=== PATIENT | female | born 1955 | race Hispanic/Latino ===

== ENCOUNTER 2020-02-22 23:34 | Inpatient (IN) | payer MEDICAID ==
[~2020-02-22] VITALS: Ht 160 cm; Wt 46.5 kg
[2020-02-23] VITALS (25 sets, daily range): BP systolic 97–135; BP diastolic 52–73
[2020-02-23] MEDS ORDERED: NITROGLYCERIN 0.4 MG SL TAB SL PRN (00:30)
[2020-02-23] MEDS ORDERED: ONDANSETRON HCL 4 MG/2 ML VIAL IV PRN (00:30)
[2020-02-23] MEDS ORDERED: ACETAMINOPHEN 325 MG TAB PO PRN ×2 (00:30)
[2020-02-23] MEDS ORDERED: VITA1CAP PO (00:58)
[2020-02-23] MEDS ORDERED: ALPR0.25 PO (00:58)
[2020-02-23] MEDS ORDERED: LISI-617 PO (00:58)
[2020-02-23 01:36] LABS: MEAN CORPUSCULAR HEMOGLOBIN 29.8 pg (27.0-33.0); MEAN CORPUSCULAR HGB CONC 34.5 g/dL (32.0-36.0); MEAN CORPUSCULAR VOLUME 86.2 fL (79-99); PLATELET COUNT (AUTO) 362 K/uL (130-400); RED BLOOD CELL COUNT(AUTO) 3.83 MIL/uL (4.00-5.50); RED CELL DISTRIBUTION WIDTH 12.9 % (11.0-15.5); WHITE BLOOD COUNT (AUTO) 14.1 K/uL (4.8-10.8)
[2020-02-23] MEDS: SODIUM CHLORIDE 0.9% 1000ML 1,000 ML IV SCH ×3 (01:45→20:30)
[2020-02-23 01:49] LABS: INR 0.99 (0.85-1.15); PARTIAL THROMBOPLASTIN TIME 25.7 SEC (26.3-35.5); PROTHROMBIN TIME 10.7 SEC (9.6-11.6)
[2020-02-23 01:56] LABS: LYMPHOCYTES % (MANUAL) 8 % (22-44); MAN.DIFF COMMENT-IMPRESSION MANUAL DIFFERENTIAL; MONOCYTES % (MANUAL) 7 % (2-9); SEGMENTED NEUTROPHILS % 85 % (40-70)
[2020-02-23 01:57] LABS: PLATELET MORPHOLOGY COMMENT ADEQUATE
[2020-02-23] MEDS: DIPHENHYDRAMINE HCL 25 MG CAPSULE PO PRN ×2 (02:06→20:24)
[2020-02-23] MEDS: MORPHINE SULFATE 2 MG/ML 1ML SYG IVP PRN (02:06)
[2020-02-23] MEDS ORDERED: ALPRAZOLAM 0.25 MG TABLET PO PRN (02:45)
[2020-02-23 05:34] LABS: ALBUMIN 3.6 g/dL (3.5-5.0); CREATININE 0.5 mg/dL (0.5-1.5); POTASSIUM 4.8 mmol/L (3.5-5.1); TOTAL PROTEIN, SERUM 7.3 g/dL (6.0-8.3)
[2020-02-23 07:10] LABS: APPEARANCE,URINE CLEAR (CLEAR); BILIRUBIN,URINE NEGATIVE (NEGATIVE); COLOR,URINE YELLOW (YELLOW); GLUCOSE, URINE (UA) NEGATIVE (NEGATIVE); KETONES,URINE 5 mg/dL (NEGATIVE); LEUKOCYTE ESTERASE ,URINE NEGATIVE (NEGATIVE); NITRATE,URINE NEGATIVE (NEGATIVE); OCCULT BLOOD,URINE TRACE-INTACT (NEGATIVE); PROTEIN,URINE NEGATIVE (NEGATIVE); UROBILINOGEN,URINE 0.2 mg/dL (0.2-1.0)
[2020-02-23 07:17] LABS: BACTERIA,URINE Rare /HPF (None Seen); RBC,URINE 0-1 /HPF (0-1); SQUAMOUS EPITHELIAL CELL,UR 0-2 /HPF (0-2); WBC,URINE 0-1 /HPF (0-1)
[2020-02-23] MEDS: FAMOTIDINE 20MG TAB 20 MG TAB PO SCH ×2 (09:00→20:22)
[2020-02-23] MEDS: ENOXAPARIN SODIUM 30 MG/0.3 ML SQ SCH (09:00)
[2020-02-23] MEDS ORDERED: MIDAZOLAM HCL 1 MG/ML 2ML VIAL ONE (12:53)
[2020-02-23] MEDS ORDERED: SUCCINYLCHOLINE CHLORIDE 20 MG/ML 10 ML VIAL ONE (12:53)
[2020-02-23] MEDS ORDERED: ONDANSETRON HCL 4 MG/2 ML VIAL ONE (12:53)
[2020-02-23] MEDS ORDERED: LIDOCAINE PF 2% 5ML ABBOJECT ONE (12:53)
[2020-02-23] MEDS ORDERED: GLYCOPYRROLATE 1 MG/5 ML SYRINGE ONE (12:53)
[2020-02-23] MEDS ORDERED: DEXAMETHASONE SOD PHOSPHATE 10MG/ML 1ML VIAL ONE (12:53)
[2020-02-23] MEDS ORDERED: ROCURONIUM 10MG/1ML SYR 10 MG/ML ML ONE (12:54)
[2020-02-23] MEDS ORDERED: NEOSTIGMINE 5MG/5ML SYR IV ONE (12:54)
[2020-02-23] MEDS ORDERED: PROPOFOL 10 MG/ML 20ML VIAL IV ONE (12:54)
[2020-02-23] MEDS ORDERED: FENTANYL CITRATE PF 50 MCG/1 ML 2ML VIAL ONE (12:54)
[2020-02-23] MEDS ORDERED: ROPIVACAINE 0.5% 5MG/ML 30ML IJ ONE ×2 (13:43→13:46)
[2020-02-23] MEDS ORDERED: CEFAZOLIN SODIUM 1 GM VIAL ONE (13:57)
[2020-02-23] MEDS ORDERED: EPHEDRINE SULFATE 50 MG/ML AMPULE ONE (15:46)
--- NOTE | 2020-02-23 19:58 | NUR ---
cm note met with patient and also spoke to sister eliud via phone, pt states resides athome with mother 92yo alexys de jesus. pt is usually independnet with adls/ambulation. no dme. no provider services. per sister pt is high functioning, and is dx with Mental delay and does have a casemanager assigned with [facility]. but pt usually does not go to day habe services. provided briefcase sewer info [facility] [phone]. or [phone] for any needs. but sister halina is open to either HH services or snf if md recommeds. will continue to followup. Addendum: 02/23/20 at 2001 by MALI MOSS CM Amended: Links added.
[2020-02-24] MEDS: MORPHINE SULFATE 2 MG/ML 1ML SYG IVP PRN ×4 (01:39→20:34)
[2020-02-24 04:00] VITALS: BP 109/62
[2020-02-24 05:28] LABS: BASOPHILS % (AUTO) 0.2 % (0.0-5.0); HEMATOCRIT 30.4 % (36-48); LYMPHOCYTES % (AUTO) 11.5 % (21.0-51.0); MEAN CORPUSCULAR HEMOGLOBIN 29.4 pg (27.0-33.0); MEAN CORPUSCULAR HGB CONC 32.9 g/dL (32.0-36.0); MEAN CORPUSCULAR VOLUME 89.4 fL (79-99); MONOCYTES % (AUTO) 9.5 % (3.0-13.0); NEUTROPHILS % (AUTO) 78.3 % (40.0-77.0); PLATELET COUNT (AUTO) 329 K/uL (130-400); RED CELL DISTRIBUTION WIDTH 13.5 % (11.0-15.5); WHITE BLOOD COUNT (AUTO) 12.4 K/uL (4.8-10.8)
[2020-02-24 05:49] LABS: ALBUMIN 2.9 g/dL (3.5-5.0); BILIRUBIN,TOTAL 0.8 mg/dL (0.2-1.0); CREATININE 0.6 mg/dL (0.5-1.5); POTASSIUM 3.2 mmol/L (3.5-5.1); TOTAL PROTEIN, SERUM 5.8 g/dL (6.0-8.3)
[2020-02-24] MEDS: SODIUM CHLORIDE 0.9% 1000ML 1,000 ML IV SCH ×2 (06:30→16:30)
[2020-02-24 08:00] VITALS: BP 103/54
[2020-02-24] MEDS: FAMOTIDINE 20MG TAB 20 MG TAB PO SCH ×2 (09:02→20:33)
[2020-02-24] MEDS: ENOXAPARIN SODIUM 30 MG/0.3 ML SQ SCH (09:03)
[2020-02-24] MEDS ORDERED: POTASSIUM CHLORIDE 20 MEQ ERTAB PO PRN (11:15)
[2020-02-24] MEDS ORDERED: POTASSIUM CHLORIDE 20MEQ/100ML 100 ML IV PRN ×2 (11:15)
[2020-02-24 11:22] VITALS: BP 116/63
[2020-02-24] MEDS: POTASSIUM CHLORIDE 10% ELIXIR 20 MEQ/15 ML UDCUP PO PRN ×3 (11:42→20:34)
[2020-02-24 16:35] VITALS: BP 116/61
[2020-02-24] MEDS ORDERED: KETOROLAC TROMETHAMINE 15MG/ML IV PRN (17:30)
[2020-02-24] MEDS: ACETAMINOPHEN-CODEINE 300/30MG TAB PO SCH (17:56)
[2020-02-24 20:12] VITALS: BP 122/57
[2020-02-24] MEDS: DIPHENHYDRAMINE HCL 25 MG CAPSULE PO PRN (20:33)
[2020-02-25 00:01] VITALS: BP 108/64
[2020-02-25] MEDS: ACETAMINOPHEN-CODEINE 300/30MG TAB PO SCH ×3 (00:48→12:54)
[2020-02-25] MEDS: SODIUM CHLORIDE 0.9% 1000ML 1,000 ML IV SCH ×3 (01:39→22:49)
[2020-02-25 04:20] VITALS: BP 129/72
[2020-02-25 05:15] LABS: BASOPHILS % (AUTO) 0.4 % (0.0-5.0); EOSINOPHILS % (AUTO) 0.4 % (0.0-8.0); HEMATOCRIT 32.2 % (36-48); LYMPHOCYTES % (AUTO) 16.1 % (21.0-51.0); MEAN CORPUSCULAR HEMOGLOBIN 29.1 pg (27.0-33.0); MEAN CORPUSCULAR HGB CONC 32.9 g/dL (32.0-36.0); MEAN CORPUSCULAR VOLUME 88.5 fL (79-99); MONOCYTES % (AUTO) 8.5 % (3.0-13.0); NEUTROPHILS % (AUTO) 74.1 % (40.0-77.0); PLATELET COUNT (AUTO) 349 K/uL (130-400); RED BLOOD CELL COUNT(AUTO) 3.64 MIL/uL (4.00-5.50); RED CELL DISTRIBUTION WIDTH 13.4 % (11.0-15.5); WHITE BLOOD COUNT (AUTO) 11.1 K/uL (4.8-10.8)
[2020-02-25 05:39] LABS: ALBUMIN 2.8 g/dL (3.5-5.0); BILIRUBIN,TOTAL 0.7 mg/dL (0.2-1.0); CREATININE 0.5 mg/dL (0.5-1.5); POTASSIUM 3.5 mmol/L (3.5-5.1); TOTAL PROTEIN, SERUM 6.2 g/dL (6.0-8.3)
[2020-02-25 08:41] VITALS: BP 131/76
[2020-02-25] MEDS: ENOXAPARIN SODIUM 30 MG/0.3 ML SQ SCH (09:49)
[2020-02-25] MEDS: FAMOTIDINE 20MG TAB 20 MG TAB PO SCH ×2 (09:49→19:44)
[2020-02-25 13:44] VITALS: BP 134/75
--- NOTE | 2020-02-25 16:04 | NUR ---
DC PLAN VISITED WITH PATIENT AND SISTER. AFTER SEVERAL CONVERSATIONS. PATIENT WILL HAVE TO GO HOME. SPOKE TO DR. NAVARRO NURSE. SAID WILL HAVE APPOINTMENT WITH DR. NAVARRO TO ORDER HOME HEALTH, NURSING SKILLS. SPOKE TO [facility] FROM [facility] THEY WILL WORK FROM THEIR END TO SET UP PROVIDER SERVICES. SPOKE TO INSURANCE. SAID THAT PATIENT DOES NOT HAVE SNF BENEFITS ONLY PHYSICAL THERAPY AVAILABLE FOR PATIENT WOULD BE OUTPATIENT EITHER AT A PLACE OR AT HOME. EXPLAINED THAT TO PATIENT AND SISTER. DECIDED WITH HOME HEALTH. FAXED INFORMATION TO DR. NAVARRO OFFICE IN ORDER TO HELP WITH SET UP. [facility] AND [facility] [place] FROM [facility] AND [facility] IN CASE THEY CALL. SIGNED BY PATIENT. WITNESSED BY SISTER IN ROOM. Addendum: 02/25/20 at 1620 by RADHIKA MARTINEZ RN CM Amended: Links added.
[2020-02-25 16:24] VITALS: BP 122/74
[2020-02-25] MEDS ORDERED: ACETAMINOPHEN-CODEINE 300/30MG TAB PO PRN (18:15)
[2020-02-25 19:30] VITALS: BP 135/74
[2020-02-25] MEDS: LACTULOSE 20 GM/30 ML UDCUP PO SCH (19:44)
[2020-02-25] MEDS: MORPHINE SULFATE 2 MG/ML 1ML SYG IVP PRN (19:45)
[2020-02-25] MEDS: HYDROMORPHONE 1 MG/1 ML AMP IVP PRN ×2 (21:04→22:49)
[2020-02-26] VITALS: BP 120/70
[2020-02-26] MEDS: HYDROMORPHONE 1 MG/1 ML AMP IVP PRN ×2 (00:48→02:44)
[2020-02-26] MEDS ORDERED: MORPHINE SULFATE 2 MG/ML 1ML SYG IVP PRN (03:45)
[2020-02-26 04:00] VITALS: BP 128/76
[2020-02-26 05:15] LABS: BASOPHILS % (AUTO) 0.6 % (0.0-5.0); EOSINOPHILS % (AUTO) 0.7 % (0.0-8.0); HEMATOCRIT 31.1 % (36-48); LYMPHOCYTES % (AUTO) 15.3 % (21.0-51.0); MEAN CORPUSCULAR HEMOGLOBIN 29.2 pg (27.0-33.0); MEAN CORPUSCULAR HGB CONC 33.1 g/dL (32.0-36.0); MEAN CORPUSCULAR VOLUME 88.1 fL (79-99); MONOCYTES % (AUTO) 7.3 % (3.0-13.0); NEUTROPHILS % (AUTO) 75.6 % (40.0-77.0); PLATELET COUNT (AUTO) 382 K/uL (130-400); RED BLOOD CELL COUNT(AUTO) 3.53 MIL/uL (4.00-5.50); RED CELL DISTRIBUTION WIDTH 13.3 % (11.0-15.5); WHITE BLOOD COUNT (AUTO) 9.9 K/uL (4.8-10.8)
[2020-02-26 05:41] LABS: ALBUMIN 2.5 g/dL (3.5-5.0); BILIRUBIN,TOTAL 0.5 mg/dL (0.2-1.0); CREATININE 0.5 mg/dL (0.5-1.5); POTASSIUM 3.7 mmol/L (3.5-5.1); TOTAL PROTEIN, SERUM 6.1 g/dL (6.0-8.3)
[2020-02-26] MEDS: SODIUM CHLORIDE 0.9% 1000ML 1,000 ML IV SCH (08:30)
[2020-02-26] MEDS: LACTULOSE 20 GM/30 ML UDCUP PO SCH (09:00)
[2020-02-26] MEDS: ENOXAPARIN SODIUM 30 MG/0.3 ML SQ SCH (09:21)
[2020-02-26] MEDS: FAMOTIDINE 20MG TAB 20 MG TAB PO SCH (09:24)
[2020-02-26 10:13] VITALS: BP 117/65
[2020-02-26 12:22] VITALS: BP 134/73
--- NOTE | 2020-02-26 13:59 | NUR ---
i have called pt's pharmacy in regards to ordering elequis and cost of it; i was told that it is 100% covered, so i have given them an [email or web address] telephone order for elequia NS TYLENOL #3; I have called pts sister and given her this information and told her i will start working on her sisters d/c now; she is also aware that she will need to set home health up through her pcp dr choudhury's office.
--- NOTE | 2020-02-26 14:57 | NUR ---
i attempted to make f/u with [facility] and was told they could not make an appointment at this time due to system being down. i will tell pt's family they need to make the appointment
--- NOTE | 2020-02-26 15:00 | NUR ---
pt's d/c paperwork complete and i have left a message on sisters phone that she is ready;
--- NOTE | 2020-02-26 16:00 | NUR ---
pt and sister given d/c instructions on after care from hip surgery, including physical therapy weight bearing as tolerated with walker at all times, pain management w/ T#3 and to be wary of lightheadedness while taking, signs and symptoms of infection to watch for and report to md at incision line, dressing changes--leave current dressing in place till f/u with dr rodriges and it will be changed at his office--but do change at home if it becomes soiled or wet and to return to ed for any emergencies; iv access removed.
[2020-02-26 16:31] VITALS: BP 145/79
== END 2020-02-26 17:30 | disposition home or self-care (01) | DRG 301 ==
LOC: 3AH 23:34
PROVIDERS: ADMIT Hospitalist; ATTEND Hospitalist
PROC: 3E0T3BZ Introduction of Anesthetic Agent into Peripheral Nerves and Plexi, Percutaneous Approach (ICD-10-PCS; 2020-02-23)
PROC: 3E0T33Z Introduction of Anti-inflammatory into Peripheral Nerves and Plexi, Percutaneous Approach (ICD-10-PCS; 2020-02-23)
PROC: 0SRR0JZ Replacement of Right Hip Joint, Femoral Surface with Synthetic Substitute, Open Approach (ICD-10-PCS; principal; 2020-02-23 14:20)
DX: S72.011A Unspecified intracapsular fracture of right femur, initial encounter for closed fracture (principal); F70 Mild intellectual disabilities; D72.829 Elevated white blood cell count, unspecified; I10 Essential (primary) hypertension; F41.9 Anxiety disorder, unspecified; E87.1 Hypo-osmolality and hyponatremia; H40.9 Unspecified glaucoma; K59.00 Constipation, unspecified; Z20.828 Contact with and (suspected) exposure to other viral communicable diseases; W18.30XA Fall on same level, unspecified, initial encounter; Y93.89 Activity, other specified; Y92.098 Other place in other non-institutional residence as the place of occurrence of the external cause; Y99.8 Other external cause status; Z82.49 Family history of ischemic heart disease and other diseases of the circulatory system
CPT/HCPCS: 36415; 71045; 72170; 80053; 81001; 82948; 84132; 84443; 85025; 85610; 85730; 86850; 86900; 86901; 86923; 87040; 87426; 93005; 97039; C1776; G0378; J0330; J0690; J1100; J1170; J1650; J2001; J2250; J2405; J2704; J2710; J2795; J3010; J3490; J7030; Q0163; U0003